=== PATIENT | female | born 1980 | race Caucasian/White ===

== ENCOUNTER 2023-10-27 09:41 | Outpatient (CLI) | payer OTHER, SELFPAY ==
[2023-10-27 10:07] VITALS: BP 118/72; PULSE 90; RESP 20; TEMP 37.2; O2SAT 98
--- NOTE | 2023-10-27 11:25 | DI.RAD_ITS ---
Exam(s) XR PAIN CLINIC SACRIOILIAC 2V EXAM: XR PAIN CLINIC SACRIOILIAC 2V CLINICAL HISTORY: Dx: Sacroiliac Joint Dysfunction. TECHNIQUE: Fluoroscopy was provided for the referring physician for guidance with performing pain cl inic injection procedure. COMPARISON: No exams were available for comparison FINDINGS: Please see procedure note for details. Fluoro time: 14.9 seconds RADIATION DOSE DELIVERED: Ka,r=2.28 mGy
[2023-10-27 11:28] VITALS: BP 113/97; PULSE 104; RESP 18; O2SAT 98
[2023-10-27] MEDS: methylPREDNISolone ACETATE 80 MG/ML VIAL IJ (11:30)
[2023-10-27] MEDS: Nerve Block Tray 1 EACH MC (11:30)
[2023-10-27] MEDS: Omnipaque 240 MG/ML 50 ML BTL IJ (11:30)
--- NOTE | 2023-10-27 13:51 | PDOC.PAIN ---
Date of service: 10/27/23 Time of Service: 12:00 Pain Managment Procedure Note Procedure Note Procedure Note: PROCEDURE NOTE LEFT INTRA-ARTICULAR SACROILIAC JOINT INJECTION Date of Service: October 27, 2023 Patient: SANDRA KAISER Provider: Clay Dorsey DO, MPH COMMENTS: I previously evaluated the patient in the office and their symptoms in relation to the sacroiliac joint pain have remained the same. She did come in an hour early to be consented so that she could take her Ativan. Her did stay with her through the procedure in the procedure suite. He was fit with a lead vest for the procedure. Pre-operative diagnosis: Sacroiliac joint dysfunction Post-operative diagnosis: Same Pre-procedure pain: VAS= 7/10 SANDRA KAISER has been referred to [facility] for a Left intra-articular Sacroiliac joint injection. SANDRA was interviewed and the medical record reviewed. There were no medical, pharmacologic, radiographic or other structural contraindications to attempting a fluoroscopically-guided, contrast-enhanced, intra-articular Sacroiliac joint injection. The risks, benefits, and potential side effects of this procedure were reviewed with the patient. Questions and concerns were addressed. After it was clear that SANDRA was fully informed about the procedure, the printed consent form was signed by the patient and myself. SANDRA was placed in the prone position on the fluoroscopy table and an automated blood pressure cuff, 3 lead EKG, and pulse oximeter were applied. The skin entry point for approaching the Left sacroiliac joint was identified under the most advantageous fluoroscopic view and marked. Following thorough Chlorhexadine preparation of the skin and draping with sterile surgical drapes, 2 mls of 1% lidocaine was infiltrated into the skin at the entry point and the surrounding subcutaneous tissues. Next, a 3.5 22G spinal needle was placed under fluoroscopic guidance into the Left sacroiliac joint. Intra-articular placement was confirmed by a clear arthrogram resulting from the injection of 0.25ml of Omnipaque-240. Next, 1 ml of Depo- Medrol 80 mg/ml was injected intra-articularly with an initial reproduction of a significant component of the usual pain. This was followed with 1 ml of 1% Lidocaine. The needle was then removed without difficulty. (49 ml of Omnipaque-240 was wasted). SANDRA's vital signs were stable throughout the procedure and were as recorded in nursing records. Follow up plans and appointments were discussed with SANDRA. Post procedure instructions were given as documented in nursing records. Having met discharge criteria, SAN[facility] was [facility] COMMENTS: Post-procedure pain: VAS= 2/10. If the patient receives at least 50% improvement in pain and/or function for at least 3 months, this procedure can be repeated if needed. I personally performed this entire procedure. CLAY DORSEY DO, MPH ABPMR-subspecialty board certification in Pain Medicine [facility]
== END 2023-10-27 09:42 | disposition home or self-care (01) ==
LOC: PC 09:44
PROVIDERS: PCP Physician Assistant Medical; Visit Provider Preventive Medicine Occupational Medicine
DX: M46.1 Sacroiliitis, not elsewhere classified (principal)
CPT/HCPCS: 00123; 27096; 72200; J1040; Q9967